=== PATIENT | male | born 1955 | race Caucasian/White ===

== ENCOUNTER 2016-07-09 11:18 | Emergency (ER) | payer OTHER ==
[~2016-07-09] VITALS: Ht 175.3 cm; Wt 80.7 kg
[~2016-07-09 11:18] MED LIST: AMLODIPINE BESYL5 MG PO; ATIVAN0.5 MG PO; ATORVASTATIN CA20 MG PO; ATORVASTATIN CA40 MG PO; CELLCEPT250 MG PO; FLORASTOR250 MG PO; LOPRESSOR25 MG PO; MAGNESIUM250 M1 PO; METOPROLOL SUCC50 MG PO; MYCOPHENOLIC A360 MG PO; NEXIUM40 MG PO; NICOTINE PATCH1 EAC2 TD; PROGRAF1 MG PO; SERTRALINE HCL50 MG PO; TAMSULOSIN HCL0.4 MG PO; TRAZODONE HCL50 MG PO; VANCOCIN HCL125 MG PO; VANCOMYCIN125 MG/2.5 PO
[2016-07-09 12:06] LABS: EOSINOPHIL COUNT 0.1 K/uL (0-0.3); HEMATOCRIT 44.6 % (38.0-50.0); IMMATURE GRANULOCYTE (%) 0.9 % (0.0-0.7); IMMATURE GRANULOCYTE COUNT 0.1 K/uL; LYMPHOCYTE COUNT 0.9 K/uL (1.0-2.8); MCHC 34.3 G/DL (30.0-36.0); MCV 84.6 FL (86-99); MEAN PLAT.VOLUME 9.9 uM^3 (9.0-12.4); MONOCYTE (%) 7.1 % (3-12); MONOCYTE COUNT 0.4 K/uL (0-0.8); NEUTROPHIL (%) 73.5 % (45-76); PLATELET COUNT 178 K/uL (156-360); RBC DIS.WIDTH-CV 12.7 % (11.8-14.6); RED BLOOD COUNT 5.27 M/uL (4.00-5.50); WHITE BLOOD COUNT 5.5 K/uL (4.1-10.2)
[2016-07-09 12:20] LABS: CHLORIDE 109 mEq/L (99-109); SODIUM 139 mEq/L (136-147)
[2016-07-09 12:21] LABS: GLUCOSE 110 mg/dL (70-99)
[2016-07-09 12:23] LABS: ANION GAP 11 MEQ/L (2-14)
[2016-07-09 12:25] LABS: GFR ESTIMATE (CALCULATED) > 59 mL/min/
[2016-07-09 12:26] LABS: UREA NITROGEN (BUN) 20 mg/dL (9-23)
[2016-07-09 12:30] LABS: ADD MIUA? YES; BILIRUBIN NEGATIVE; BLOOD SMALL; COLOR STRAW ((YELLOW)); GLUCOSE (STRIP) NEGATIVE; KETONES NEGATIVE; LEUKOCYTES NEGATIVE; NITRITE NEGATIVE; PROTEIN (STRIP) NEGATIVE; SPECIFIC GRAVITY 1.004 (1.000-1.030); UROBILINOGEN 0.2 MG/DL (0.2-1.0)
[2016-07-09 12:33] LABS: BACTERIA NONE SEEN /HPF; EPITHELIAL CELLS NONE SEEN /HPF; MUCUS NONE SEEN /LPF; RED BLOOD CELLS 0-5 /HPF (0-5); UCUL ADDED? NO; WHITE BLOOD CELLS 0-5 /HPF (0-5)
[2016-07-09 14:05] VITALS: BP 119/86
== END 2016-07-09 14:07 | disposition home or self-care (01) ==
LOC: EME 11:18
PROVIDERS: Emergency Medicine
DX: I10 Essential (primary) hypertension (principal); K21.9 Gastro-esophageal reflux disease without esophagitis; F17.200 Nicotine dependence, unspecified, uncomplicated; Z94.0 Kidney transplant status
CPT/HCPCS: 71010; 80048; 81003; 85025; 87040; 99281; 99285

== ENCOUNTER 2017-06-24 18:55 | Emergency (ER) | payer OTHER ==
[~2017-06-24] VITALS: Ht 175.3 cm; Wt 79.6 kg
[2017-06-24 19:02] VITALS: BP 154/93
== END 2017-06-24 20:52 | disposition left against medical advice (07) ==
LOC: EME 18:55
DX: L08.9 Local infection of the skin and subcutaneous tissue, unspecified (principal); Z53.21 Procedure and treatment not carried out due to patient leaving prior to being seen by health care provider